=== PATIENT | female | born 1980 | race Hispanic/Latino ===

== ENCOUNTER 2019-09-26 03:54 | Emergency (ER) | payer OTHER ==
[~2019-09-26] VITALS: Ht 160 cm; Wt 102.1 kg
[~2019-09-26 03:54] MED LIST: ALBUTEROL SULF8.5 GM IH; LEVAQUIN500 MG PO; LORTAB 7.5-5001 EACH PO; SINGULAIR10 MG PO; ZYRTEC10 M1 PO
[2019-09-26 05:12] LABS: CLARITY,URINE CLOUDY (CLEAR); COLOR,URINE YELLOW (YELLOW); KETONES,URINE NEGATIVE (NEGATIVE); LEUKOCYTE ESTERASE ,URINE NEGATIVE (NEGATIVE); NITRITE,URINE NEGATIVE (NEGATIVE); PROTEIN,URINE DIPSTICK NEGATIVE (NEGATIVE)
[2019-09-26 05:13] LABS: BILIRUBIN,URINE SMALL (NEGATIVE); PREGNANCY TEST, URINE NEGATIVE (NEGATIVE); URINE UROBILINOGEN 1 mg/dL (0.2 - 1)
[2019-09-26 05:24] LABS: BACTERIA,URINE MODERATE /HPF; CALCIUM OXALATE CRYSTALS,UR FEW (FEW); EPITHELIAL CELLS,URINE FEW /LPF; MUCUS,URINE MANY (RARE)
== END 2019-09-26 05:45 | disposition home or self-care (01) ==
LOC: ER 03:54
DX: R10.30 Lower abdominal pain, unspecified (principal); N76.1 Subacute and chronic vaginitis; N30.91 Cystitis, unspecified with hematuria; J45.909 Unspecified asthma, uncomplicated; F20.9 Schizophrenia, unspecified
CPT/HCPCS: 81001; 81025; 99283